=== PATIENT | male | born 1990 | race Two or more races ===

== ENCOUNTER 2024-01-27 15:06 | Emergency (ER) | payer OTHER, SELFPAY ==
--- NOTE | ~2024-01-27 | XR_ITS ---
EXAMINATION: XR HIP, RIGHT CLINICAL INFORMATION: Pain COMPARISON: None available. TECHNIQUE: Two views of the right hip. FINDINGS: No fracture or dislocation. Minimal right hip joint narrowing. Visualized SI joint within normal limits. Alignment is normal. XR/XR hip RT w [id number] IMPRESSION: No acute bony pathology
[2024-01-27 16:02] VITALS: BP 176/91; PULSE 99; RESP 18; TEMP 36.8; O2SAT 98; BMI 32.2
--- NOTE | 2024-01-27 16:03 | ED.GENADULT ---
HPI - General Adult General Chief complaint: Extremity Injury, Lower Stated complaint: pain in R hip down to ankle Time Seen by Provider: 01/27/24 17:15 Source: patient Mode of arrival: ambulatory Limitations: no limitations History of Present Illness HPI narrative: 33 year old male with no significant past medical history presents to the emergency department with complaints of right sided low back pain radiating into the ankle. 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 He denies any falls or known trauma. He also denies any red flag symptoms, urinary hesitancy, urinary or fecal incontinence, paresthesias, or weakness. pertinent positives and negatives discussed in HPI Related Data Allergies Allergy/AdvReac Type Severity Reaction Status Date / Time aspirin [ASPIRIN] Allergy Intermediate FACIAL Verified 01/27/24 16:07 SWELLING Review of Systems Review of Systems: Yes all other systems are reviewed and are negative FOR[facility]LY [facility] Social History Social History Advance Directives: No Advance Directives Information Provided: No Physical Exam ED Vital Signs: Vital Signs - 24 hr 01/27/24 16:02 01/27/24 17:33 01/27/24 17:39 Temperature 98.2 F 99.4 F 99.4 F Pulse Rate 99 100 99 Respiratory Rate 18 18 18 Blood Pressure 176/91 H 158/100 H 158/100 H Pulse Oximetry 98 99 99 Oxygen Delivery Method Room Air Room Air Room Air BMI result Body Mass Index 32.2 Nursing notes and vital signs reviewed. GENERAL APPEARANCE: A&0 x 4, generally well appearing, no acute distress HENMT: Normal to inspection, atraumatic, face symmetrical. Normal external ears, nose, and oropharynx clear. EYE: PERRLA, EOM intact, structures appear normal NECK: Supple without stiffness or restricted ROM. HEART: Normal rate and regular rhythm, normal S1/S2, no M/R/G LUNGS: LS CTA, moving air well. Able to speak in complete sentences. No crackles, wheezes, or rhonchi auscultated BACK: No CVAT, no obvious deformity. TTP right low back. No erythema or swelling noted EXTREMITIES: Moving all extremities without difficulty. Normal capillary refill. NEUROLOGICAL: Alert and oriented, moving all 4 extremities with equal strength. CN not formally tested but appearing grossly intact. Observed to ambulate with normal gait. Cognition normal SKIN: Warm and dry without any lesions, rash, or visible sores Course Course Course Narrative: This is an RME: Additional HPI, ROS, PE not included below will be deferred to primary provider. This is a [id number], who presents to the emergency department, with complaints of right hip pain since today. Pt is training at the [email or web address] and was running and immediately felt pain into his right hip, now radiating down his right leg. Ambulatory with antalgic gait. Plan: X-ray Medical Decision Making Medical Decision Making MDM Narrative: Old records reviewed for previous imaging, lab studies, ECGs, and notes. Patient was assessed the emergency department with no acute distress or toxicity noted. XR hip and pelvis negative for acute findings per my interpretation. Pt's symptoms are consistent with acute sciatic nerve pain. Patient is safe for discharge at this time with plan for [id number] Tylenol and/or NSAID such as ibuprofen or naproxen for fever/discomfort with dosing as per packaging. HPI, PE, diagnostics, and plan discussed with patient and family with no unanswered questions at this time. Strict return precautions given to return to the emergency department with new, worsening, or concerning emergent symptoms. Recommended to follow-up with there primary care provider in 24-48 hours for further treatment and management. Differential Diagnosis Differential Diagnoses: The differential diagnosis associated with the presentation includes but not limited to strain, sprain, fracture, dislocation, stenosis, radiculopathy, cauda equina, epidural abscess, sciatic nerve pain, sepsis, malignancy Independent Interpretation I performed an independent interpretation of an: Plain X-Ray Interpretation: as negative for acute findings Discharge Plan Discharge Clinical Impression: Sciatic leg pain Patient Disposition: Home, Self-Care Instructions: Sciatica (ED) Referrals: Luís Teran MD [Primary Care Provider] - Stand Alone Forms: Work/School Release Interventions: ED Discharge Assessment Last Done: 01/27/24 17:39 Discharge Date/Time: 01/27/24 17:39 Print Language: Kyrgyz
[2024-01-27 17:33] VITALS: BP 158/100; PULSE 100; RESP 18; TEMP 37.4; O2SAT 99
[2024-01-27 17:39] VITALS: BP 158/100; PULSE 99; RESP 18; TEMP 37.4; O2SAT 99
== END 2024-01-27 17:39 | disposition home or self-care (01) ==
PROVIDERS: Emergency Provider Emergency Medicine Emergency Medical Services; PCP Pediatrics
DX: M54.31 Sciatica, right side (principal)
CPT/HCPCS: 73502; 99283